=== PATIENT | female | born 1960 | race Caucasian/White ===

== ENCOUNTER 2020-11-27 10:57 | Emergency (ER) | payer SELFPAY ==
--- NOTE | 2020-11-27 11:10 | NUR ---
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
--- NOTE | 2020-11-27 11:27 | NUR ---
PT SIGNED FORM W/ REG. PT LWBS.
== END 2020-11-27 11:29 | disposition left against medical advice (07) ==
LOC: ED 11:27
DX: H92.02 Otalgia, left ear (principal); R11.0 Nausea; R42 Dizziness and giddiness; Z53.21 Procedure and treatment not carried out due to patient leaving prior to being seen by health care provider